=== PATIENT | female | born 1950 | race Caucasian/White ===

== ENCOUNTER 2018-05-16 15:59 | Emergency (ER) | payer MEDICARE, OTHER ==
[~2018-05-16] VITALS: Ht 167.6 cm; Wt 76.2 kg
[~2018-05-16 15:59] MED LIST: FLEET ENEMA133 ML RECTAL; GOLYTELY SOLU4000 ML PO
[2018-05-16] MEDS ORDERED: LEVOTHYROXINE75 MCG ORAL (16:11)
[2018-05-16] MEDS ORDERED: KLONOPIN0.5 MG ORAL (16:11)
[2018-05-16 16:12] VITALS: BP 149/96
[2018-05-16] MEDS ORDERED: Tetanus/Diptheria/Pertussis Vaccine 0.5ml Syr IM ONE (16:45)
--- NOTE | 2018-05-16 16:47 | Emergency Room Report ---
History of Present Illness General Chief Complaint: Laceration Source: Patient Present Illness HPI 67-year-old female presents to the emergency department complaining of 2 lacerations to the fingers on both hands that were sustained over 2 hours ago by a shredder machine. Patient states that her fingers have just continued to bleed despite applying pressure so she decided to come get evaluated in the ER. Patient denies taking blood thinning medications. She is not sure when her last tetanus vaccination was. She denies pain at this time. direct palpation is an aggravating factor. Right ring finger is bleeding the most per pt. Allergies: Coded Allergies: PROCAINE HCL (Verified Allergy, 02/22/13) Patient History Past Medical History: see triage record Past Surgical History: none Pertinent Family History: none Reviewed Nursing Documentation: PMH: Agreed; PSxH: Agreed Nursing Documentation-PMH Past Medical History: No History, Except For Hx Hypertension: Yes Review of Systems All Other Systems: negative except mentioned in HPI Physical Exam Vital Signs Date Time Temp Pulse Resp B/P (MAP) Pulse Ox O2 Delivery O2 Flow Rate FiO2 05/16/18 16:03 97.7 78 20 149/96 98 Room Air Sp02 EP Interpretation: reviewed, normal General Appearance: no apparent distress, alert, GCS 15, non-toxic Head: normocephalic, atraumatic Eyes: bilateral eye normal inspection, bilateral eye PERRL ENT: hearing grossly normal, normal voice Neck: full range of motion Respiratory: lungs clear, normal breath sounds, speaking full sentences Cardiovascular #1: regular rate, rhythm, normal capillary refill Musculoskeletal: back normal, gait/station normal, normal range of motion, non- tender Neurologic: alert, oriented x3, responsive, motor strength/tone normal, sensory intact, normal gait, speech normal, grossly normal Psychiatric: judgement/insight normal Skin: normal color, no rash, warm/dry, well hydrated, abrasions - skin abrasions to the left 1st and Right 4th digits. Procedures Laceration/Wound Repair Laceration/Wound Repair : Consent: Verbal Wound Location: upper extremity - finger tip of the right 4th digit. Wound's Depth, Shape: superficial - abrasions Wound Length (cm): 0 Wound Explored: clean Wound Repaired With: Dermabond Sterile Dressing Applied?: Yes Splint Applied?: No Sling Applied?: No Patient Tolerated: Well Complications: None Medical Decision Making PA Attestation Dr. Ocoha is my supervising Physician whom patient management has been discussed with. Diagnostic Impression: Primary Impression: Finger abrasion Qualified Codes: S60.419A - Abrasion of unspecified finger, initial encounter ER Course 67-year-old female presents to the emergency department complaining of 2 lacerations to the fingers of her left hand that was sustained over 2 hours ago by a shredder machine. Patient states that her fingers have just continued to bleed despite applying pressure so she decided to come get evaluated in the ER. Patient denies taking blood thinning medications. She is not sure when her last tetanus vaccination was. She denies pain at this time. direct palpation is an aggravating factor. Ddx considered but are not limited to laceration, tendon injury, cellulitis, amputation Vital signs: are WNL, pt. is afebrile H&PE are most consistent with: skin abrasions to the left 1st and 4th digits.- Left thumb is not bleeding at this time, finger tip of the right 4th digit continues to bleed. ORDERS: none required at this time, the diagnosis is clinical ED INTERVENTIONS: -Tetanus vaccine was administered as pt. vaccination status was unknown. - The wound was copiously irrigated with normal saline, and explored again. derma mclain is applied finger Splint applied by residential gas heat technician. Pt. remains neurovascularly intact. Discussed with patient: That we make every effort to approximate the laceration as best as we can so that scarring will be as cosmetically pleasing as possible with our limited cosmetic skill set in the Emergency dept. Regardless of our best efforts there will be scarring after laceration repair. The extent of scarring is unknown at this time. DISCHARGE: At this time pt. is stable for d/c to home. Will provide printed patient care instructions, and any necessary prescriptions. Care plan and follow up instructions have been discussed with the patient prior to discharge. Last Vital Signs Date Time Temp Pulse Resp B/P (MAP) Pulse Ox O2 Delivery O2 Flow Rate FiO2 05/16/18 16:12 97.7 72 20 149/96 98 Room Air Disposition: HOME, SELF-CARE Condition: Stable Scripts Acetaminophen* (TYLENOL EXTRA STRENGTH*) 500 Mg Tablet 500 MG ORAL Q6H, #20 TAB 0 Refills Prov: Bhavna Manjarrez 05/16/18 Referrals: NOT CHOSEN IPA/MD,REFERRING (PCP) Patient Instructions: Nonsutured Laceration Care Additional Instructions: Take medications as directed. Follow up with a Primary Care Provider in 3-5 days, even if your symptoms have resolved. --Please review list of primary care clinics, if you do not already have a primary care provider Return sooner to ED if new symptoms occur, or current symptoms become worse. - Please note that this Emergency Department Report was dictated using [employer] transcription technology software, occasionally this can lead to erroneous entry secondary to interpretation by the dictation equipment. Bhavna Manjarrez May 16, 2018 16:47
[2018-05-16] MEDS ORDERED: TYLENOL EXTRA500 MG ORAL (16:48)
[2018-05-16 17:56] VITALS: BP 149/96
== END 2018-05-16 17:52 | disposition home or self-care (01) ==
LOC: EMR 16:34
DX: S60.414A Abrasion of right ring finger, initial encounter (principal); S60.312A Abrasion of left thumb, initial encounter; W31.89XA Contact with other specified machinery, initial encounter; Z23 Encounter for immunization; I10 Essential (primary) hypertension
CPT/HCPCS: 29130; 90471; 90715; 99283

== ENCOUNTER 2020-08-11 21:35 | Emergency (ER) | payer MEDICARE, OTHER ==
[~2020-08-11] VITALS: Ht 170.2 cm; Wt 77.1 kg
[~2020-08-11 21:35] MED LIST changes: +KLONOPIN0.5 MG ORAL; +LEVOTHYROXINE75 MCG ORAL; +TYLENOL EXTRA500 MG ORAL
--- NOTE | 2020-08-11 22:04 | Emergency Room Report ---
History of Present Illness General Chief Complaint: Pain Source: Patient Present Illness HPI This is 70-year-old female with a history high blood pressure. She presents with chief complaint of right facial pain. Is been ongoing for 2 days. No focal deficit. She felt tingling and pain on her right facial area including forehead. No slurred speech. She also think that she may have a urinary tract infection because of decreased urination. Denies any cough or congestion. Denies any fever chills but denies any dysuria frequency. No chest pain or shortness of breath. Allergies: Coded Allergies: PENICILLINS (Verified Allergy, Unknown, 08/11/20) PROCAINE HCL (Verified Allergy, Unknown, 08/11/20) COVID-19 Screening Contact w/high risk pt: No Experienced COVID-19 symptoms?: No COVID-19 Testing performed CURLING MACHINE OPERATOR: No Patient History Past Medical History: see triage record, old chart reviewed, HTN Past Surgical History: none Pertinent Family History: none Social History: Denies: smoking Now: No Immunizations: other Reviewed Nursing Documentation: PMH: Agreed; PSxH: Agreed Nursing Documentation-PMH Hx Hypertension: Yes Review of Systems Eye: Denies: eye pain, blurred vision ENT: Denies: ear pain, nose congestion, throat swelling Respiratory: Denies: cough, shortness of breath Cardiovascular: Denies: chest pain, palpitations Gastrointestinal: Denies: abdominal pain, diarrhea, nausea, vomiting Musculoskeletal: Denies: back pain, joint pain Skin: Denies: rash Neurological: Denies: headache, numbness Endocrine: Denies: increased thirst, increased urine Hematologic/Lymphatic: Denies: easy bruising All Other Systems: negative except mentioned in HPI Physical Exam Vital Signs Date Time Temp Pulse Resp B/P (MAP) Pulse Ox O2 Delivery O2 Flow Rate FiO2 08/11/20 21:41 97.9 86 20 125/77 (93) 96 Vitals normal Sp02 EP Interpretation: reviewed, normal General Appearance: well appearing, no apparent distress, alert Head: normocephalic, atraumatic Eyes: bilateral eye PERRL, bilateral eye EOMI ENT: hearing grossly normal, normal pharynx Neck: full range of motion, supple, no meningismus Respiratory: chest non-tender, lungs clear, normal breath sounds Cardiovascular #1: regular rate, rhythm, no murmur Gastrointestinal: normal bowel sounds, non tender, no mass, no organomegaly, no bruit, non-distended Musculoskeletal: back normal, normal range of motion, gait/station normal Psychiatric: mood/affect normal Medical Decision Making Diagnostic Impression: Primary Impression: Headache Qualified Codes: R51.9 - Headache, unspecified ER Course Patient presents with headache and facial pain. There is no evidence of TIA or CVA. Her symptoms included her forehead and facial area. I see no evidence of any Petersen's palsy. She has no tenderness or palpable mass over the temporal area. Laboratory data is unremarkable. No evidence of a urinary tract infection. Will wait for culture prior to starting antibiotics. CT/MRI/US Diagnostic Results CT/MRI/US Diagnostic Results : Imaging Test Ordered: CT head Impression Negative per radiologist Last Vital Signs Date Time Temp Pulse Resp B/P (MAP) Pulse Ox O2 Delivery O2 Flow Rate FiO2 08/11/20 21:41 97.9 86 20 125/77 (93) 96 Status: improved Disposition: HOME, SELF-CARE Condition: Stable Scripts Acetaminophen* (ACETAMINOPHEN EXTRA STRENGTH*) 500 Mg Tablet 500 MG ORAL Q8H PRN for Fever/Headache/Mild Pain, #30 TAB Prov: Tommie Ramos MD 08/11/20 Additional Instructions: Follow-up with your doctor in 7 days. Return if symptoms worsen. Tommie Ramos MD Aug 11, 2020 22:04
--- NOTE | 2020-08-11 22:17 | NUR ---
ED Nurse Note: pt presented to the ER with complaints of facial pain on her left side x2 days hx of HTN blood and urine specimen sent to lab
[2020-08-11 22:18] VITALS: BP 125/77
[2020-08-11 22:23] LABS: APPEARANCE,URINE CLEAR; BASOPHILS % (AUTO) 0.8 % (0.0-2.0); BILIRUBIN, URINE NEGATIVE (NEGATIVE); EOSINOPHILS % (AUTO) 2.5 % (0.0-3.0); GLUCOSE, URINE (UA) NEGATIVE (NEGATIVE); HEMATOCRIT 40.4 % (37.0-47.0); HEMOGLOBIN 13.7 G/DL (12.0-16.0); KETONES,URINE NEGATIVE (NEGATIVE); LEUKOCYTE ESTERASE ,URINE 1+ (NEGATIVE); LYMPHOCYTES % (AUTO) 34.1 % (20.0-45.0); MEAN CORPUSCULAR VOLUME 88 FL (80-99); MONOCYTES % (AUTO) 8.3 % (1.0-10.0); NEUTROPHILS % (AUTO) 54.4 % (45.0-75.0); NITRITE,URINE NEGATIVE (NEGATIVE); PH,URINE 5 (4.5-8.0); PLATELET COUNT 299 K/UL (150-450); PROTEIN,URINE 2+ (NEGATIVE); RED BLOOD COUNT 4.61 M/UL (4.20-5.40); RED CELL DISTRIBUTION WIDTH 12.7 % (11.6-14.8); UROBILINOGEN,URINE NORMAL MG/DL (0.0-1.0); WHITE BLOOD COUNT 10.1 K/UL (4.8-10.8)
[2020-08-11 22:24] LABS: COLOR,URINE YELLOW
[2020-08-11 22:33] LABS: CALCIUM 10.4 MG/DL (8.5-10.1); POTASSIUM 3.3 MMOL/L (3.5-5.1)
--- NOTE | 2020-08-11 22:42 | Diagnostic Imaging Report ---
EXAM: CT Head Without Intravenous Contrast CLINICAL HISTORY: PAIN TECHNIQUE: Axial computed tomography images of the head/brain without intravenous contrast. CTDI is 53.4 mGy and DLP is 992.1 mGy-cm. One or more of the following dose reduction techniques were used: automated exposure control, adjustment of the mA and/or kV according to patient size, use of iterative reconstruction technique. COMPARISON: No relevant prior studies available. FINDINGS: Brain: No hemorrhage, extra-axial fluid collection, mass effect, or edema. Ventricles: Unremarkable. Bones/joints: Unremarkable. No fracture. Soft tissues: Unremarkable. Sinuses: Unremarkable as visualized. Mastoid air cells: Unremarkable as visualized. IMPRESSION: 1. No acute intracranial abnormality.
[2020-08-11] MEDS ORDERED: Ketorolac 30mg Inj IV ONE (23:00)
[2020-08-11] MEDS ORDERED: Ketorolac 30mg Inj ONE (23:00)
[2020-08-11] MEDS ORDERED: ACETAMINOPHEN500 M3 ORAL (23:00)
[2020-08-11 23:03] VITALS: BP 152/80
--- NOTE | 2020-08-11 23:30 | NUR ---
ER DISCHARGE NOTE: Patient is cleared to be discharged per ERMD, pt is aox4, on room air, with stable vital signs. pt was given dc and prescription instructions, pt was able to verbalize understanding, pt id band and iv site removed without complications. pt is able to ambulate with steady gait. pt took all belongings.
== END 2020-08-11 23:30 | disposition home or self-care (01) ==
LOC: EMR 22:00
DX: R51.9 Headache, unspecified (principal); I10 Essential (primary) hypertension; Z88.0 Allergy status to penicillin
CPT/HCPCS: 36415; 70450; 80048; 81001; 84484; 85025; 96361; 96374; 99284; J1885; J7030